=== PATIENT | female | born 1960 | race Two or more races ===

== ENCOUNTER 2017-05-08 08:20 | Emergency (ER) | payer OTHER ==
[~2017-05-08] VITALS: Ht 152.4 cm; Wt 67.1 kg
[2017-05-08] MEDS ORDERED: CELEXA20 MG (08:37)
[2017-05-08] MEDS ORDERED: AMBIEN10 MG (08:37)
[2017-05-08] MEDS ORDERED: MEDROLPACK PO (11:55)
[2017-05-08] MEDS ORDERED: DICLOFENAC SODI50 MG PO (11:55)
[2017-05-08] MEDS ORDERED: DIAZEPAM10 MG PO (11:55)
== END 2017-05-08 12:29 | disposition home or self-care (01) ==
LOC: ER 08:20
DX: M54.2 Cervicalgia (principal); M62.838 Other muscle spasm; M43.6 Torticollis

== ENCOUNTER 2018-09-28 11:00 | Emergency (ER) | payer OTHER ==
[~2018-09-28] VITALS: Ht 152.4 cm; Wt 64.4 kg
[~2018-09-28 11:00] MED LIST: AMBIEN10 MG; CELEXA20 MG; DIAZEPAM10 MG PO; DICLOFENAC SODI50 MG PO; MEDROLPACK PO
== END 2018-09-28 12:16 | disposition home or self-care (01) ==
LOC: ER 11:00
DX: M54.5 Low back pain (principal)

== ENCOUNTER → 2018-11-22 | Emergency (ER) | payer OTHER ==
[~2018-11-22] VITALS: Ht 152.4 cm; Wt 63.0 kg
[~2018-11-22] MED LIST changes: +MAXALT MLT5 MG PO; +SKELAXIN800 MG PO; +VOLTAREN-XR100 MG PO
== END | disposition home or self-care (01) ==
LOC: ER 11:05
DX: M54.5 Low back pain (principal); M50.321 Other cervical disc degeneration at C4-C5 level; R10.2 Pelvic and perineal pain

== ENCOUNTER 2019-01-25 09:01 | Emergency (ER) | payer OTHER ==
[~2019-01-25] VITALS: Ht 152.4 cm; Wt 64.4 kg
== END 2019-01-25 11:18 | disposition home or self-care (01) ==
LOC: ER 09:01
DX: M79.18 Myalgia, other site (principal); M54.5 Low back pain; N39.0 Urinary tract infection, site not specified

== ENCOUNTER → 2019-02-06 | Emergency (ER) | payer OTHER ==
[~2019-02-06] VITALS: Ht 152.4 cm; Wt 63.5 kg
[~2019-02-06] MED LIST changes: +ALBUTEROL1.25 MG/3 IH; +CLARITIN10 MG PO; +TUSNEL LIQUID178 ML PO; +ZITHROMAX500 MG PO
== END | disposition left against medical advice (07) ==
LOC: ER 01:47
DX: Z53.20 Procedure and treatment not carried out because of patient's decision for unspecified reasons (principal)

== ENCOUNTER 2019-02-09 08:40 | Emergency (ER) | payer OTHER ==
[~2019-02-09] VITALS: Ht 154.9 cm; Wt 63.5 kg
[~2019-02-09 08:40] MED LIST changes: -ALBUTEROL1.25 MG/3 IH; -CLARITIN10 MG PO; -TUSNEL LIQUID178 ML PO; -ZITHROMAX500 MG PO
[2019-02-09] MEDS ORDERED: ZITHROMAX500 MG PO (09:18)
[2019-02-09] MEDS ORDERED: TUSNEL LIQUID178 ML PO (09:18)
[2019-02-09] MEDS ORDERED: CLARITIN10 MG PO (09:18)
[2019-02-09] MEDS ORDERED: ALBUTEROL1.25 MG/3 IH (09:19)
== END 2019-02-09 09:57 | disposition home or self-care (01) ==
LOC: ER 08:40
DX: J00 Acute nasopharyngitis [common cold] (principal)

== ENCOUNTER 2019-04-11 08:14 | Emergency (ER) | payer OTHER ==
[~2019-04-11] VITALS: Ht 152.4 cm; Wt 63.5 kg
[~2019-04-11 08:14] MED LIST changes: +ALBUTEROL1.25 MG/3 IH; +CLARITIN10 MG PO; +TUSNEL LIQUID178 ML PO; +ZITHROMAX500 MG PO
[2019-04-11] MEDS ORDERED: NORFLEX100MG PO (12:13)
== END 2019-04-11 12:22 | disposition home or self-care (01) ==
LOC: ER 08:14
DX: B34.9 Viral infection, unspecified (principal); R05 Cough; M54.89 Other dorsalgia

== ENCOUNTER 2019-05-23 11:51 | Emergency (ER) | payer OTHER ==
[~2019-05-23] VITALS: Ht 154.9 cm; Wt 66.2 kg
[~2019-05-23 11:51] MED LIST changes: +NORFLEX100MG PO
[2019-05-23] MEDS ORDERED: SKELAXIN800 MG PO (14:41)
[2019-05-23] MEDS ORDERED: CELEBREX200MG PO (14:41)
== END 2019-05-23 14:46 | disposition home or self-care (01) ==
LOC: ER 11:51
DX: M62.830 Muscle spasm of back (principal)

== ENCOUNTER 2019-08-11 10:07 | Emergency (ER) | payer OTHER ==
[~2019-08-11] VITALS: Ht 152.4 cm; Wt 64.4 kg
[~2019-08-11 10:07] MED LIST changes: +CELEBREX200MG PO
[2019-08-11] MEDS ORDERED: AMBIEN10 MG (10:16)
[2019-08-11] MEDS ORDERED: CLONAZEPAM2 MG (10:17)
[2019-08-11] MEDS ORDERED: VOLTAREN-XR100 MG PO (11:31)
[2019-08-11] MEDS ORDERED: TORADOL60 MG IM (11:31)
[2019-08-11] MEDS ORDERED: SKELAXIN800 MG PO (11:31)
== END 2019-08-11 11:37 | disposition home or self-care (01) ==
LOC: ER 10:07
DX: M54.5 Low back pain (principal)

== ENCOUNTER 2019-11-14 10:46 | Emergency (ER) | payer OTHER ==
[~2019-11-14] VITALS: Ht 154.9 cm; Wt 61.7 kg
[~2019-11-14 10:46] MED LIST changes: +CLONAZEPAM2 MG; +TORADOL60 MG IM
[2019-11-14] MEDS ORDERED: SEROQUEL400 MG (11:17)
[2019-11-14] MEDS ORDERED: KETO10TA2 PO (13:06)
[2019-11-14] MEDS ORDERED: NORFLEX100MG PO (13:06)
== END 2019-11-14 13:12 | disposition home or self-care (01) ==
LOC: ER 10:46
DX: M54.5 Low back pain (principal); M25.562 Pain in left knee